=== PATIENT | female | born 1990 | race Caucasian/White ===

== ENCOUNTER 2022-10-11 18:06 | Emergency (ER) | payer BC, OTHER ==
[~2022-10-11] VITALS: Ht 167.6 cm; Wt 72.6 kg
--- NOTE | 2022-10-11 18:06 | NUR ---
ARRIVAL PT ARRIVED VIA BED FROM CAR IN [facility] TO ED 3 WITH A SEIZURE. PTS BOYFRIEND STATES THEY WERE DRIVING AROUND AND SHE STARTED TO SEIZE. PT WAS STILL SEIZING WE PULLED HER OUT OF THE CAR. PT HAS A HISTORY OF EPILEPSY. TWO IVS INITIATED, ATIVAN GIVEN, VITALS TAKEN AND DR IN ROOM.
[2022-10-11] MEDS ORDERED: ATIVAN ONE ×2 (18:11→18:24)
[2022-10-11] MEDS ORDERED: ATIVAN IM STA (18:19)
[2022-10-11] MEDS ORDERED: ATIVAN IV STA ×2 (18:19→18:22)
[2022-10-11] MEDS ORDERED: NS 1000ML 1,000 ML STA (18:19)
[2022-10-11] MEDS ORDERED: KEPPRA IV ONE (18:21)
[2022-10-11] MEDS ORDERED: NS 1000ML 1,000 ML ONE (18:22)
[2022-10-11 18:34] LABS: BASOPHIL % 0.3 % (0.0-0.2); EOSINOPHIL % 0.1 % (0.0-5.0); LYMPHOCYTES # 2.34 10^3/uL1 (1.0-4.8); LYMPHOCYTES % 31.4 % (24.0-44.0); MEAN CORP HGB 29.3 pg (26-34); MONOCYTES % 13.3 % (5.0-12.0); NEUTROPHIL # 4.1 10^3/uL (1.8-7.7); NEUTROPHILS % 54.6 % (41.0-85.0); PLATELET COUNT 280 10^3/uL (150-400); RED CELL DISTRIBUTION WIDTH 11.5 % (11.5-14.5)
[2022-10-11] MEDS ORDERED: NS 100ML 100 ML IV ONE (18:34)
[2022-10-11] MEDS ORDERED: KEPPRA 100 ML IV STA ×3 (18:40)
[2022-10-11 18:44] VITALS: BP 97/86
[2022-10-11 18:51] LABS: CARBON DIOXIDE 27.4 mmol/L (20.0-32)
--- NOTE | 2022-10-11 19:05 | ER.PDOC ---
General Chief Complaint: Seizure Stated Complaint: SEZIURE Time seen by MD: 18:10 Source: patient, family Exam Limitations: clinical condition History of Present Illness Initial Comments 31-year-old female brought in by her boyfriend who states that she is having a seizure. He states that she has a history of seizures, and today stated that she was not feeling well, feeling fatigued, they were driving and she stated that she needed to go to the hospital. Upon arrival, she started having a seizure in the car. Nursing staff helped her to the room. She was unresponsive in the room, convulsing. No signs of injury. Timing/Onset/Duration: Single Episode, Continued On Arrival Preceding Symptoms/Context: recent illness Character Of Seizures: lost consciousness Motor Activity: shaking all over Allergies: Coded Allergies: amoxicillin (Verified Allergy, Unknown, 10/11/22) amphotericin B (Verified Allergy, Unknown, 10/11/22) ceftriaxone (Verified Allergy, Unknown, 10/11/22) metoclopramide (Verified Allergy, Unknown, 10/11/22) midazolam (Verified Allergy, Unknown, 10/11/22) morphine (Verified Allergy, Unknown, 10/11/22) vancomycin (Verified Allergy, Unknown, 10/11/22) Past Medical History Medical History: cardiac problems Social History Alcohol Use: none Drug Use: none All Other Systems: Reviewed and Negative Physical Exam General Appearance: convulsing EENT: nystagmus Respiratory: breath sounds nml CVS: heart sounds nml, tachycardia Abdomen: no distention Skin: color nml, no rash Extremities: no pedal edema Observed Seizure Activity: generalized, head turned (R) Results/Orders Results/Orders Vital Signs Date Time Temp Pulse Resp B/P (MAP) Pulse Ox O2 Delivery O2 Flow Rate FiO2 10/11/22 18:44 98.7 115 18 10/11/22 18:44 98.7 115 18 97/86 (90) 96 Room Air* 0 21 10/11/22 18:44 98.7 115 18 96 Administered Medications Medications (Trade) Dose Ordered Sig/Luke Route PRN Reason Start Time Stop Time Status Last Admin Dose Admin Lorazepam (Ativan) 2 mg OT STAT IM 10/11/22 18:19 10/11/22 18:22 DC 10/11/22 18:14 2 MG Lorazepam (Ativan) 2 mg STAT STAT IV 10/11/22 18:19 10/11/22 18:22 DC 10/11/22 18:16 2 MG Lorazepam (Ativan) 2 mg STAT STAT IV 10/11/22 18:22 10/11/22 18:24 DC 10/11/22 18:19 2 MG Sodium Chloride 1,000 ml @ 0 mls/hr Q0M STAT IV 10/11/22 18:19 10/11/22 18:22 DC 10/11/22 18:17 1,200 MLS/HR Laboratory Tests Test 10/11/22 18:27 White Blood Count 7.5 10^3/uL (4.5-11.0) Red Blood Count 4.51 10^6/uL (4.00-5.20) Hemoglobin 13.2 g/dL (12.0-15.0) Hematocrit 40.8 % (36.0-46.0) Mean Corpuscular Volume 90.5 fL (78-100) Mean Corpuscular Hemoglobin 29.3 pg (26-34) Mean Corpuscular Hemoglobin Concent 32.4 g/dL (33-36.5) L Red Cell Distribution Width 11.5 % (11.5-14.5) Platelet Count 280 10^3/uL (150-400) Mean Platelet Volume 9.3 fL (7.8-11.0) Neutrophils (%) (Auto) 54.6 % (41.0-85.0) Lymphocytes (%) (Auto) 31.4 % (24.0-44.0) Monocytes (%) (Auto) 13.3 % (5.0-12.0) H Neutrophils # (Auto) 4.1 10^3/uL (1.8-7.7) Lymphocytes # (Auto) 2.34 10^3/uL1 (1.0-4.8) Monocytes # (Auto) 1.0 10^3/uL (0.3-0.8) H Absolute Immature Granulocyte (auto 0.02 10^3 u/L (0-2) Absolute Eosinophils (auto) 0.0 10^3/uL (0.0-0.2) Immature Granulocytes % 0.30 % (0.00-0.50) Eosinophils % 0.1 % (0.0-5.0) Basophils % 0.3 % (0.0-0.2) H Basophils # 0.0 10^3/uL (0.0-0.1) Sodium Level 140 mmol/L (132-145) Potassium Level 3.9 mmol/L (3.6-5.2) Chloride Level 104.0 mmol/L (96-109) Carbon Dioxide Level 27.4 mmol/L (20.0-32) Anion Gap 12.5 Blood Urea Nitrogen 11 mg/dL (7-18) Creatinine 0.85 mg/dL (0.59-1.40) Estimated GFR () 95.0 (>/=60) Est GFR (CKD-EPI)(Non-Afr Danish) 78.5 (>/=60) BUN/Creatinine Ratio 12.0 Glucose Level 109 mg/dL (70-110) Calcium Level 9.4 mg/dL (8.4-10.5) Total Bilirubin 0.2 mg/dL (0.2-1.0) Aspartate Amino Transferase (AST) 23 U/L (0-35) Alanine Aminotransferase (ALT) 17 U/L (12-78) Alkaline Phosphatase 103 U/L (50-136) Total Protein 7.4 g/dL (6.4-8.2) Albumin 4.3 g/dL (3.4-5.0) Globulin 3.1 Albumin/Globulin Ratio 1.387 Lipase 24 U/L (16-77) Serum HCG, Qualitative NEGATIVE (NEGATIVE) Progress Progress We gave her multiple doses of IV Ativan, 1 g of Keppra, after the Keppra the convulsions stopped. However, she woke up very quickly after the convulsions stopped answering questions appropriately within a few minutes. I went through her medications with her, there were no seizure medications although she states that she is on Keppra. She had no Keppra with her. She states that was at home. She asked what would happen if he seizes again, she states that she always has to be intubated for seizures. I told her not to intubate her as long as she is awake and speaking to us Transfer of care from Dr. Gustafson CT head showed no acute intracranial abnormality. CBC and chemistry are normal. Patient has not had any more seizure in the emergency room. She is feeling better. She told me that she has seizure medications at home. She is discharged home in stable condition. Patient told me that she has Vimpat and Keppra which she takes at home. ER DEPART Departure Time of Disposition: 20:13 Disposition: 01 HOME / SELF CARE / HOMELESS Impression: Primary Impression: Seizure Condition: Improved Referrals: PCP,UNKNOWN (PCP) PRIMARY CARE PROVIDER Additional Instructions: Continue Keppra and Vimpat at home Follow-up with your neurologist in 2 to 3 days Return to ED if worsening seizures or concerns Duration or Time Spent with Pa: 60 min NASRIN GUSTAFSON MD Oct 11, 2022 19:05 MANOHAR NDIAYE MD Oct 11, 2022 20:16
--- NOTE | 2022-10-11 19:25 | DIREP ---
PROCEDURE:CT HEAD OR BRAIN W/O CONTRAST COMPARISON:None. INDICATIONS:seizure TECHNIQUE:CT images were created without intravenous contrast. FINDINGS: VENTRICLES:The ventricles are normal in size and configuration. CEREBRUM:Normal cerebral morphology with appropriate reno white matter differentiation. CEREBELLUM:Negative. BRAINSTEM:Negative. BASAL CISTERNS:Negative. HEMORRHAGE (Vol L*W*H*.52):No MASS LESION:No ACUTE INFARCT:No SKULL:Normal. SINUSES:Normal. OTHER:None CONCLUSION:No acute hemorrhage mass effect. If signs and symptoms persist follow-up MRI with contrast could be performed. Dictated by: Lencho Cross MD on 10/11/2022 at 07:22 PM
== END 2022-10-11 20:22 | disposition home or self-care (01) ==
LOC: ER 18:06
DX: R56.9 Unspecified convulsions (principal); Z88.0 Allergy status to penicillin
CPT/HCPCS: 99284; 96365; 70450; 96375; 96372; 80053; 85025; 36415; 83690; 84703; J7030; J2060 ×2; J1953

== ENCOUNTER 2022-10-21 04:05 | Emergency (ER) | payer BC ==
[~2022-10-21] VITALS: Ht 170.2 cm; Wt 76.7 kg
[2022-10-21 04:25] VITALS: BP 144/92
[2022-10-21 04:34] LABS: BILIRUBIN,URINE NEGATIVE (NEGATIVE); UROBILINOGEN,URINE 0.2 E.U./dL (0.2)
[2022-10-21] MEDS ORDERED: LIDODERM TP STA (04:41)
[2022-10-21] MEDS ORDERED: ROBAXIN PO STA (04:41)
[2022-10-21] MEDS ORDERED: TORADOL IM STA (04:41)
[2022-10-21] MEDS ORDERED: ROBAXIN ONE (04:47)
[2022-10-21] MEDS ORDERED: TORADOL ONE (04:47)
--- NOTE | 2022-10-21 04:51 | ER.PDOC ---
General Chief Complaint: Flank Pain Stated Complaint: POSS KIDNEY STONE Time seen by MD: 04:15 Source: patient Exam Limitations: no limitations History of Present Illness Initial Comments Patient is a 31-year-old female with a past medical history documented later in this chart who comes in with left-sided flank pain over the past 2 to 3 days. Patient states that over the past 2 to 3 days she has had left-sided flank pain says that sharp in nature radiates towards her groin made worse with movement palpation better with rest. Patient states the ketorolac does not work and that she can only take Dilaudid. I explained to her that she stated that one of her allergies was morphine and Dilaudid and morphine if you are allergic to 1 would be very risky to take the other however she states that she always gets Dilaudid is the only thing that works. I informed her that I would not be giving her Dilaudid. She stated that she just needed 1 dose I again informed her that I would not. Patient denies any other symptoms or concerns at this time. Allergies: Coded Allergies: amoxicillin (Verified Allergy, Unknown, 10/11/22) amphotericin B (Verified Allergy, Unknown, 10/11/22) ceftriaxone (Verified Allergy, Unknown, 10/11/22) metoclopramide (Verified Allergy, Unknown, 10/11/22) midazolam (Verified Allergy, Unknown, 10/11/22) morphine (Verified Allergy, Unknown, 10/11/22) vancomycin (Verified Allergy, Unknown, 10/11/22) Vital Signs First Vital Signs Date Time Temp Pulse Resp B/P (MAP) Pulse Ox O2 Delivery O2 Flow Rate FiO2 10/21/22 04:25 97.8 65 18 97 10/21/22 04:25 144/92 (109) Room Air* 0 21 Last Vital Signs Date Time Temp Pulse Resp B/P (MAP) Pulse Ox O2 Delivery O2 Flow Rate FiO2 10/21/22 04:25 97.8 65 18 144/92 (109) 97 Room Air* 0 21 Past Medical History Medical History: arrhythmia Surgical History: no surgical history Family History Significant Family History: no pertinent family hx Social History Smoking: non-smoker Alcohol Use: none Drug Use: none Reviewed Nursing Reviewed: Vital Signs, Abn. Noted, Nursing Assessment Constitutional: no symptoms reported EENTM: no symptoms reported Respiratory: no symptoms reported Cardiovascular: no symptoms reported Gastrointestinal: abdominal pain Genitourinary: no symptoms reported Musculoskeletal: no symptoms reported Skin: no symptoms reported Psychiatric/Neurological: no symptoms reported Endocrine: no symptoms reported Hematologic/Lymphatic: no symptoms reported Physical Exam General Appearance: No Apparent Distress HEENT: PERRL/EOMI, Normal ENT Inspection, TMs Normal, Pharynx Normal Neck: Non-Tender, Full Range of Motion, Supple, Normal Inspection Respiratory: chest non-tender, lungs clear, normal breath sounds, no res piratory distress, no accessory muscle use Cardiovascular: Normal Peripheral Pulses, Regular Rate, Rhythm, No Edema, No Gallop, No JVD, No Murmur Gastrointestinal: Normal Bowel Sounds, Soft, Tenderness (Will wince before you even touch her stomach. It is completely soft. States that only Dilaudid works.) Back: Normal Inspection, No CVA Tenderness, No Vertebral Tenderness Extremities: Normal Range of Motion, Non-Tender, Normal Inspection, No Pedal Edema, No Calf Tenderness, Normal Capillary Refill, Pelvis Stable Neurologic/Psychiatric: data power consultant II-XII NML as Tested, No Motor/Sensory Deficits, Alert, Normal Mood/Affect, Oriented x 3 Skin: Normal Color, Warm/Dry Lymphatic: No Adenopathy Results/Orders Results/Orders Orders - ISAC RODRIGEZ MD Urinalysis (10/21/22 04:24) Urine Culture (10/21/22 04:21) Ketorolac Tromethamine (Toradol) (10/21/22 04:41) Methocarbamol (Robaxin) (10/21/22 04:41) Lidocaine (Lidoderm) (10/21/22 04:41) Vital Signs Date Time Temp Pulse Resp B/P (MAP) Pulse Ox O2 Delivery O2 Flow Rate FiO2 10/21/22 04:25 97.8 65 18 144/92 (109) 97 Room Air* 0 21 10/21/22 04:25 97.8 65 18 97 Laboratory Tests Test 10/21/22 04:21 Urine Collection Type RANDOM Urine Color YELLOW Urine Appearance CLOUDY Urine Bilirubin NEGATIVE (NEGATIVE) Urine Ketones NEGATIVE (NEGATIVE) Urine Specific [place] 1.025 (1.005-1.030) Urine pH 6.0 (4.5-8.0) Urine Protein NEGATIVE (NEGATIVE) Urine Urobilinogen 0.2 E.U./dL (0.2) Urine Nitrate NEGATIVE (NEGATIVE) Urine Leukocyte Esterase NEGATIVE (NEGATIVE) Urine Glucose (Auto)(UA) NEGATIVE (NEGATIVE) Urine Blood NEGATIVE (NEGATIVE) Progress Progress Patient here stating that she is got massive kidney stones The ketorolac does not work for her and only Dilaudid will work. We will send off urine and continue to monitor. Patient still pending make pain medication we will give Robaxin and ketorolac. Patient stating that only Dilaudid workspatient is exhibiting extreme drug- seeking behavior. Do believe the patient is malingering. Will discharge with ketorolac Lidoderm patches and Robaxin. No need for further work-up as patient's belly is extraordinarily soft she winces before you even touch it. Vital signs are perfectly within normal limits. No tachycardia to indicate that she was actually in pain or anything like that. ER DEPART Departure Time of Disposition: 04:49 Disposition: 01 HOME / SELF CARE / HOMELESS Impression: Primary Impression: Flank pain Additional Impressions: Malingering Drug-seeking behavior Condition: Stable Patient Instructions: Flank Pain Referrals: PCP,UNKNOWN (PCP) PRIMARY CARE PROVIDER Additional Instructions: Follow-up with primary care provider within 1 week. If you have any new persistent or worsening symptoms or concerns seek medical attention. Please take all medications as prescribed. Duration or Time Spent with Pa: 30 Problem Qualifiers ISAC RODRIGEZ MD Oct 21, 2022 04:51
--- NOTE | 2022-10-21 04:53 | NUR ---
In room to medicate patient. Patient states she thinks she is going to have a seizure. MD notified. No new orders at this time.
--- NOTE | 2022-10-21 05:10 | NUR ---
Patient appears to be having psudoseizure. MD notified. MD at bedside for patient exam. MD talking with mother on phone
[2022-10-21 05:27] VITALS: BP 136/87
== END 2022-10-21 05:39 | disposition home or self-care (01) ==
LOC: ER 04:05
DX: R10.9 Unspecified abdominal pain (principal); Z76.5 Malingerer [conscious simulation]; I49.9 Cardiac arrhythmia, unspecified; Z88.0 Allergy status to penicillin; Z88.1 Allergy status to other antibiotic agents; Z88.5 Allergy status to narcotic agent
CPT/HCPCS: 99284; 96372; 87086; 81001; 87186; J1885

== ENCOUNTER 2022-10-21 06:56 | Emergency (ER) | payer BC ==
[~2022-10-21] VITALS: Ht 175.3 cm; Wt 68.0 kg
[2022-10-21 07:04] VITALS: BP 163/93
--- NOTE | 2022-10-21 07:09 | NUR ---
ARRIVAL PATIENT ARRIVED TO ED5 VIA [facility] BY [facility], C/O SEIZURE LIKE ACTIVITY TODAY, WAS SEEN IN THIS ED LAST NIGHT AND SENT HOME, PATIENT WAS ALSO RECENTLY SEEN AT [facility] AND SENT HOME WITH MEDICATIONS, IT WAS ALSO STATED SHE HAS NOT GOTTEN HER PRESCRIBED MEDICATIONS, EMS CALLED AND INITIATED A 20G TO THE LEFT HAND SALINE LOCKED, ASSISTED PATIENT TO [facility], VITAL SIGNS TAKE AND DOCTOR NOTIFIED OF PATIENT'S ARRIVAL.
[2022-10-21] MEDS ORDERED: APRESOLINE ONE (07:15)
[2022-10-21] MEDS ORDERED: KEPPRA ONE (07:15)
[2022-10-21] MEDS ORDERED: KEPPRA PO STA (07:16)
[2022-10-21] MEDS ORDERED: ATARAX PO STA (07:16)
[2022-10-21] MEDS ORDERED: ATARAX ONE (07:19)
--- NOTE | 2022-10-21 07:24 | ER.PDOC ---
General Chief Complaint: Seizure Stated Complaint: SEIZURE Time seen by MD: 07:00 Source: patient, EMS Exam Limitations: no limitations History of Present Illness Initial Comments PT is a 31yF with pmhx of pseudoseizures and opiate abuse who presents via EMS after stating she had seizures at home. Pt was recently dc from the hospital. On arrival pt is having a pseudoseizure, can splash saline in her eye and she winces all of her reflexes are intact and pt is not tachycardic nor does her pulse ox change. When I told her that I was not convinced this was a real seizure she opened her eyes and had zero post ictal period. She began once again begging for ativan. Allergies: Coded Allergies: amoxicillin (Verified Allergy, Unknown, 10/11/22) amphotericin B (Verified Allergy, Unknown, 10/11/22) ceftriaxone (Verified Allergy, Unknown, 10/11/22) metoclopramide (Verified Allergy, Unknown, 10/11/22) midazolam (Verified Allergy, Unknown, 10/11/22) morphine (Verified Allergy, Unknown, 10/11/22) vancomycin (Verified Allergy, Unknown, 10/11/22) Past Medical History Medical History: arrhythmia Surgical History: no surgical history Family History Significant Family History: no pertinent family hx Social History Smoking: non-smoker Alcohol Use: none Drug Use: none (opioids ) Constitutional: other (pt refused to cooperate with ROS) Physical Exam General Appearance: anxious EENT: nml eye inspection, PERRL, no nystagmus, nml ENT inspection, no apparent, pharynx nml, no CSF leak Neck/Back: neck supple, non-tender Respiratory: no resp distress, breath sounds nml, no evidence of rib injury CVS: reg rate & rhythm, heart sounds nml Abdomen: non-tender, no organomegaly, no distention Skin: color nml, no rash, warm/dry Extremities: non-tender, nml ROM, no pedal edema Neuro/Psych: oriented x 3, speech nml, mood/affect nml Cerebellar: nml tested, nml Romberg Sensorimotor: no motor deficit, no sensory deficit, reflexes nml Results/Orders Results/Orders Vital Signs Date Time Temp Pulse Resp B/P (MAP) Pulse Ox O2 Delivery O2 Flow Rate FiO2 10/21/22 07:04 98.4 73 20 10/21/22 07:04 98.4 73 20 163/93 (116) 97 Room Air* 0 21 10/21/22 07:04 98.4 73 20 97 Progress Progress Pt bounce back with pseudoseizures - because she states she will continue to bouce back without anti seizure meds - will give keppra and hydroxizine - pt remains HD normal - no need for further work up - pt admits hoping that EMS would give her ativan and asks for drug rehab places - will dc with those resources 0725 - Reassessment - pt more willing to listen and will accept the drug rehab information ER DEPART Departure Time of Disposition: 07:24 Disposition: 01 HOME / SELF CARE / HOMELESS Impression: Primary Impression: Psychiatric pseudoseizure Additional Impression: Drug-seeking behavior Condition: Improved Patient Instructions: Alcohol and Drug Addiction, Finding Treatment, Nonepileptic Seizures Referrals: PCP,UNKNOWN (PCP) PRIMARY CARE PROVIDER Additional Instructions: Please seek help for your drug addiction. IF you have any new persistent or worsening symptoms or concerns seek emergent medical attention. Take all medi cations as prescribed Duration or Time Spent with Pa: 30 Problem Qualifiers ISAC RODRIGEZ MD Oct 21, 2022 07:24
[2022-10-21 07:29] VITALS: BP 128/61
== END 2022-10-21 07:50 | disposition home or self-care (01) ==
LOC: EDBD 06:56 → EDUNIT# 06:56 → ER 06:56
DX: R56.9 Unspecified convulsions (principal); Z76.5 Malingerer [conscious simulation]; Z88.0 Allergy status to penicillin; Z88.5 Allergy status to narcotic agent; Z88.1 Allergy status to other antibiotic agents
CPT/HCPCS: 99283